=== PATIENT | male | born 1985 | race Caucasian/White ===

== ENCOUNTER → 2019-06-26 | Outpatient (CLI) | payer BC ==
[2019-06-26 12:58] LABS: Basophils # (A) 0.1 k/uL (0-0.2); Basophils % (A) 2 %; Eosinophils # (A) 0.1 k/uL (0-0.7); Eosinophils % (A) 2 %; HCT 48.1 % (39.0-53.0); HGB 15.3 gm/dL (13.0-17.5); Lymphocytes # (A) 0.8 k/uL (1.0-4.8); Lymphocytes % (A) 19 %; MCH 32.1 pg (25.0-35.0); MCHC 31.8 g/dL (31.0-37.0); MCV 100.9 fL (80.0-100.0); Monocytes # (A) 0.3 k/uL (0-1.0); Monocytes % (A) 8 %; Neutrophils # (A) 2.7 k/uL (1.3-7.7); Neutrophils % (A) 67 %; Platelet Count 254 k/uL (150-450); RBC 4.76 m/uL (4.30-5.90); RDW 12.2 % (11.5-15.5); WBC 4.1 k/uL (3.8-10.6)
[2019-06-26 13:04] LABS: African American GFR (CKD) >90 (>60 ml/min/1.73 sqM); Albumin 4.9 g/dL (3.5-5.0); Anion Gap 9 mmol/L; Blood Urea Nitrogen 16 mg/dL (9-20); Calcium 10.2 mg/dL (8.4-10.2); Carbon Dioxide 31 mmol/L (22-30); Chloride 100 mmol/L (98-107); Globulin 2.9 g/dL; Glucose 98 mg/dL (74-99); Non-African American GFR(CKD) >90 (>60 ml/min/1.73 sqM); Potassium 4.4 mmol/L (3.5-5.1); Sodium 140 mmol/L (137-145); Total Protein 7.8 g/dL (6.3-8.2)
[2019-06-26 13:05] LABS: ALT 23 U/L (4-49); AST 32 U/L (17-59); Albumin/Globulin Ratio 1.7; Alkaline Phosphatase 48 U/L (38-126); Creatine Kinase 122 U/L (55-170); Total Bilirubin 2.6 mg/dL (0.2-1.3)
[2019-06-26 13:32] LABS: Creatine Kinase MB 1.3 ng/mL (0.0-2.4); Troponin I <0.012 ng/mL (0.000-0.034)
[2019-06-26 14:17] LABS: Erythrocyte Sedimentation Rate 2 mm/hr (0-15)
== END | disposition home or self-care (01) ==
LOC: LABWHC1 12:28
PROVIDERS: ATTEND Physician Assistant
DX: R07.89 Other chest pain (principal)
CPT/HCPCS: 36415; 80053; 82248; 82550; 82553; 84484; 85025; 85652

== ENCOUNTER 2024-04-20 21:17 | Emergency (ER) | payer BC ==
--- NOTE | 2024-04-20 21:32 | ED ---
Fever HPI - General Chief Complaint: Chest Pain Stated Complaint: Chest Pain Time Seen by Provider: 04/20/24 21:25 Source: patient, RN notes reviewed, old records reviewed Mode of arrival: ambulatory Limitations: no limitations - History of Present Illness Initial Comments: This is a 38-year-old male to ER with left-sided chest pain cough congestion fev er symptoms, patient is going through a lot of turmoil in his life currently, recent divorce and multiple different medications started both for depression and sleeplessness. Patient stopped taking those medications within the last couple weeks and was noticed cough fever and congestion today left-sided chest pain MD Complaint: fever, malaise Temperature Source: subjective Context: sick contacts Associated Symptoms: denies other symptoms, rigors, myalgias, cough, chest pain Treatments Prior to Arrival: none - Related Data Allergies Allergy/AdvReac Type Severity Reaction Status Date / Time No Known Allergies Allergy Verified 04/20/24 21:18 Review of Systems ROS Statement: Those systems with pertinent positive or pertinent negative responses have been documented in the HPI. ROS Other: All systems not noted in ROS Statement are negative. Past Medical History Past Medical History: No Reported History Past Surgical History: No Surgical Hx Reported Smoking Status: Former smoker Past Alcohol Use History: None Reported Past Drug Use History: Marijuana General Exam Limitations: no limitations General appearance: alert, in no apparent distress, anxious, in distress Head exam: Present: atraumatic, normocephalic, normal inspection Eye exam: Present: normal appearance, PERRL, EOMI. Absent: scleral icterus, conjunctival injection, periorbital swelling ENT exam: Present: normal exam, mucous membranes moist Neck exam: Present: normal inspection. Absent: tenderness, meningismus, lymphadenopathy Respiratory exam: Present: normal lung sounds bilaterally. Absent: respiratory distress, wheezes, rales, rhonchi, stridor Cardiovascular Exam: Present: normal rhythm, tachycardia, normal heart sounds. Absent: systolic murmur, diastolic murmur, rubs, gallop, clicks GI/Abdominal exam: Present: soft, normal bowel sounds. Absent: distended, tenderness, guarding, rebound, rigid Extremities exam: Present: normal inspection, full ROM, normal capillary refill. Absent: tenderness, pedal edema, joint swelling, calf tenderness Back exam: Present: normal inspection Neurological exam: Present: alert, oriented X3, CN II-XII intact Psychiatric exam: Present: normal affect, normal mood Skin exam: Present: warm, dry, intact, normal color. Absent: rash Course Vital Signs 04/20/24 04/21/24 04/21/24 21:19 00:08 01:44 Temperature 100.6 F H 99.2 F Pulse Rate 104 H 96 99 Respiratory 20 15 17 Rate Blood Pressure 125/68 117/70 113/66 O2 Sat by Pulse 97 95 97 Oximetry - Reevaluation(s) Reevaluation #1: 04/20/24 22:14 Medical records reviewed Reevaluation #2: 04/21/24 00:40 1 symptoms improved Reevaluation #3: 04/21/24 00:40 Patient informed of results and questions answered Reevaluation #4: Was pt. sent in by a medical professional or institution (, [facility], BANK REPRESENTATIVE, urgent care, hospital, or fci...) When possible be specific @ -no Did you speak to anyone other than the patient for history (EMS, parent, family, police, friend...)? What history was obtained from this source @ -no Did you review nursing and triage notes (agree or disagree)? Why? @ -agree Are old charts reviewed (outside hosp., previous admission, EMS record, old EKG, old radiological studies, urgent care reports/EKG's, fci records)? Report findings @ -yes Differential Diagnosis (chest pain, altered mental status, abdominal pain women, abdominal pain men, vaginal bleeding, weakness, fever, dyspnea, syncope, headache, dizziness, GI bleed, back pain, seizure, CVA, palpatations, mental health, musculoskeletal)? @ -prior EKG interpreted by me (3pts min.). @ -yes X-rays interpreted by me (1pt min.). @ -yes negative for acute disease CT interpreted by me (1pt min.). @ -no U/S interpreted by me (1pt. min.). @ -no What testing was considered but not performed or refused? (CT, X-rays, U/S, labs)? Why? @ -none What meds were considered but not given or refused? Why? @ -none Did you discuss the management of the patient with other professionals (jacob cano i.e. , [facility], BANK REPRESENTATIVE, lab, RT, psych nurse, social welfare research worker, economic development specialist, teacher, chief contract officer, counseling case manager)? Give summary @ -no Was smoking cessation discussed for >3mins.? @ -no Was critical care preformed (if so, how long)? @ -no Were there social determinants of health that impacted care today? How? (Homelessness, low income, unemployed, alcoholism, drug addiction, transportation, low edu. Level, literacy, decrease access to med. care, long term, rehab)? @ -none Was there de-escalation of care discussed even if they declined (Discuss DNR or withdrawal of care, Hospice)? DNR status @ -no What co-morbidities impacted this encounter? (DM, HTN, Smoking, COPD, CAD, Cancer, CVA, ARF, Chemo, Hep., AIDS, mental health diagnosis, sleep apnea, morbid obesity)? @ -none Was patient admitted / discharged? Hospital course, mention meds given and route, prescriptions, significant lab abnormalities, going to OR and other pertinent info. @ - 38 male to ER for evaluation of chest pain chest pain found fever of left- sided chest pain no acute causes found here in the ER x-rays negative lab testin g is normal patient has a fever here without cause, patient will be discharged home discharge Undiagnosed new problem with uncertain prognosis? @ -no Drug Therapy requiring intensive monitoring for toxicity (Heparin, Nitro, Insulin, Cardizem)? @ -no Were any procedures done? @ -no Diagnosis/symptom? @ -Chest pain and fever Acute, or Chronic, or Acute on Chronic? @ -Acute Uncomplicated (without systemic symptoms) or Complicated (systemic symptoms)? @ -Complicated Side effects of treatment? @ -no Exacerbation, Progression, or Severe Exacerbation? @ -exacerbation Poses a threat to life or bodily function? How? (Chest pain, [place], [place], pneumonia, PE, COPD, DKA, ARF, appy, cholecystitis, CVA, Diverticulitis, Homicidal, Suicidal, threat to staff... and all critical care pts) @ -yes Reevaluation #5: Differential Fever: Pneumonia, viral URI, endocarditis, myocarditis, pericarditis, otitis, sinusitis, peritonsillar Abscess, retropharyngeal Abscess, epiglottitis, peritonitis, appendicitis, Sharlene cystitis, diverticulitis, hepatitis, colitis, UTI, PID, TOA, pyelonephritis, prostatitis, epididymitis, meningitis, encephalitis, pulmonary embolism, CVA, thyroid storm, pancreatitis, adrenal crisis, cavernous sinus thrombosis, this is not meant to be an all-inclusive list. Differential Chest Pain: Stable Angina, Unstable Angina, STEMI, NSTEMI Aortic Dissection, Pneumothorax, Musculoskeletal, Esophageal Spasm GERD, Cholecystitis, Pancreatitis, Zoster, this is not meant to be an all-inclusive list. Medical Decision Making - Medical Decision Making 38 male to ER for evaluation of chest pain chest pain found fever of left-sided chest pain no acute causes found here in the ER x-rays negative lab testing is normal patient has a fever here without cause, patient will be discharged home - Lab Data Result diagrams: 04/20/24 21:40 04/20/24 21:40 Lab Results 04/20/24 04/20/24 04/20/24 Range/Units 21:40 21:40 21:40 WBC 15.6 H (3.8-10.6) k/uL RBC 4.27 L (4.30-5.90) m/uL Hgb 13.4 (13.0-17.5) gm/dL Hct 42.3 (39.0-53.0) % MCV 99.1 (80.0-100.0) fL MCH 31.5 (25.0-35.0) pg MCHC 31.8 (31.0-37.0) g/dL RDW 12.1 (11.5-15.5) % Plt Count 366 (150-450) k/uL MPV 6.9 Neutrophils % 84 % Lymphocytes % 7 % Monocytes % 7 % Eosinophils % 1 % Basophils % 0 % Neutrophils # 13.1 H (1.3-7.7) k/uL Lymphocytes # 1.1 (1.0-4.8) k/uL Monocytes # 1.1 H (0-1.0) k/uL Eosinophils # 0.1 (0-0.7) k/uL Basophils # 0.0 (0-0.2) k/uL PT 10.3 (10.0-12.5) sec INR 0.9 (<1.2) APTT 26.9 (22.0-30.0) sec D-Dimer (<0.60) mg/L FEU Sodium 135 L (137-145) mmol/L Potassium 4.1 (3.5-5.1) mmol/L Chloride 103 (98-107) mmol/L Carbon Dioxide 24 (22-30) mmol/L Anion Gap 8 mmol/L BUN 12 (9-20) mg/dL Creatinine 0.67 (0.66-1.25) mg/dL Est GFR (CKD-EPI)AfAm >90 (>60 ml/min/1.73 sqM) Est GFR (CKD-EPI)NonAf >90 (>60 ml/min/1.73 sqM) Glucose 108 H (74-99) mg/dL Plasma Lactic Acid [place] (0.7-2.0) mmol/L Calcium 9.5 (8.4-10.2) mg/dL Magnesium 1.8 (1.6-2.3) mg/dL Total Bilirubin 0.6 (0.2-1.3) mg/dL AST 27 (17-59) U/L ALT 19 (4-49) U/L Alkaline Phosphatase 77 (38-126) U/L Troponin I (0.000-0.034) ng/mL NT-Pro-B Natriuret Pep <20 pg/mL Total Protein 6.6 (6.3-8.2) g/dL Albumin 4.3 (3.5-5.0) g/dL Lipase (23-300) U/L Urine Color Urine Appearance (Clear) Urine pH (5.0-8.0) Ur Specific [place] (1.001-1.035) Urine Protein (Negative) Urine Glucose (UA) (Negative) Urine Ketones (Negative) Urine Blood (Negative) Urine Nitrite (Negative) Urine Bilirubin (Negative) Urine Urobilinogen (<2.0) mg/dL Ur Leukocyte Esterase (Negative) Influenza Type A (PCR) (Not Detectd) Influenza Type B (PCR) (Not Detectd) RSV (PCR) (Not Detectd) SARS-CoV-2 (PCR) (Not Detectd) 04/20/24 04/20/24 04/20/24 Range/Units 21:40 22:18 22:18 WBC (3.8-10.6) k/uL RBC (4.30-5.90) m/uL Hgb (13.0-17.5) gm/dL Hct (39.0-53.0) % MCV (80.0-100.0) fL MCH (25.0-35.0) pg MCHC (31.0-37.0) g/dL RDW (11.5-15.5) % Plt Count (150-450) k/uL MPV Neutrophils % % Lymphocytes % % Monocytes % % Eosinophils % % Basophils % % Neutrophils # (1.3-7.7) k/uL Lymphocytes # (1.0-4.8) k/uL Monocytes # (0-1.0) k/uL Eosinophils # (0-0.7) k/uL Basophils # (0-0.2) k/uL PT (10.0-12.5) sec INR (<1.2) APTT (22.0-30.0) sec D-Dimer (<0.60) mg/L FEU Sodium (137-145) mmol/L Potassium (3.5-5.1) mmol/L Chloride (98-107) mmol/L Carbon Dioxide (22-30) mmol/L Anion Gap mmol/L BUN (9-20) mg/dL Creatinine (0.66-1.25) mg/dL Est GFR (CKD-EPI)AfAm (>60 ml/min/1.73 sqM) Est GFR (CKD-EPI)NonAf (>60 ml/min/1.73 sqM) Glucose (74-99) mg/dL Plasma Lactic Acid [place] 1.6 (0.7-2.0) mmol/L Calcium (8.4-10.2) mg/dL Magnesium (1.6-2.3) mg/dL Total Bilirubin (0.2-1.3) mg/dL AST (17-59) U/L ALT (4-49) U/L Alkaline Phosphatase (38-126) U/L Troponin I <0.012 (0.000-0.034) ng/mL NT-Pro-B Natriuret Pep pg/mL Total Protein (6.3-8.2) g/dL Albumin (3.5-5.0) g/dL Lipase (23-300) U/L Urine Color Urine Appearance (Clear) Urine pH (5.0-8.0) Ur Specific [place] (1.001-1.035) Urine Protein (Negative) Urine Glucose (UA) (Negative) Urine Ketones (Negative) Urine Blood (Negative) Urine Nitrite (Negative) Urine Bilirubin (Negative) Urine Urobilinogen (<2.0) mg/dL Ur Leukocyte Esterase (Negative) Influenza Type A (PCR) Not Detected (Not Detectd) Influenza Type B (PCR) Not Detected (Not Detectd) RSV (PCR) Not Detected (Not Detectd) SARS-CoV-2 (PCR) Not Detected (Not Detectd) 04/20/24 04/20/24 04/20/24 Range/Units 23:50 23:50 23:59 WBC (3.8-10.6) k/uL RBC (4.30-5.90) m/uL Hgb (13.0-17.5) gm/dL Hct (39.0-53.0) % MCV (80.0-100.0) fL MCH (25.0-35.0) pg MCHC (31.0-37.0) g/dL RDW (11.5-15.5) % Plt Count (150-450) k/uL MPV Neutrophils % % Lymphocytes % % Monocytes % % Eosinophils % % Basophils % % Neutrophils # (1.3-7.7) k/uL Lymphocytes # (1.0-4.8) k/uL Monocytes # (0-1.0) k/uL Eosinophils # (0-0.7) k/uL Basophils # (0-0.2) k/uL PT (10.0-12.5) sec INR (<1.2) APTT (22.0-30.0) sec D-Dimer 0.23 (<0.60) mg/L FEU Sodium (137-145) mmol/L Potassium (3.5-5.1) mmol/L Chloride (98-107) mmol/L Carbon Dioxide (22-30) mmol/L Anion Gap mmol/L BUN (9-20) mg/dL Creatinine (0.66-1.25) mg/dL Est GFR (CKD-EPI)AfAm (>60 ml/min/1.73 sqM) Est GFR (CKD-EPI)NonAf (>60 ml/min/1.73 sqM) Glucose (74-99) mg/dL Plasma Lactic Acid [place] (0.7-2.0) mmol/L Calcium (8.4-10.2) mg/dL Magnesium (1.6-2.3) mg/dL Total Bilirubin (0.2-1.3) mg/dL AST (17-59) U/L ALT (4-49) U/L Alkaline Phosphatase (38-126) U/L Troponin I (0.000-0.034) ng/mL NT-Pro-B Natriuret Pep <20 pg/mL Total Protein (6.3-8.2) g/dL Albumin (3.5-5.0) g/dL Lipase 63 (23-300) U/L Urine Color Colorless Urine Appearance Clear (Clear) Urine pH 6.0 (5.0-8.0) Ur Specific [place] 1.004 (1.001-1.035) Urine Protein Negative (Negative) Urine Glucose (UA) Negative (Negative) Urine Ketones Negative (Negative) Urine Blood Negative (Negative) Urine Nitrite Negative (Negative) Urine Bilirubin Negative (Negative) Urine Urobilinogen <2.0 (<2.0) mg/dL Ur Leukocyte Esterase Negative (Negative) Influenza Type A (PCR) (Not Detectd) Influenza Type B (PCR) (Not Detectd) RSV (PCR) (Not Detectd) SARS-CoV-2 (PCR) (Not Detectd) 04/21/24 Range/Units 00:53 WBC (3.8-10.6) k/uL RBC (4.30-5.90) m/uL Hgb (13.0-17.5) gm/dL Hct (39.0-53.0) % MCV (80.0-100.0) fL MCH (25.0-35.0) pg MCHC (31.0-37.0) g/dL RDW (11.5-15.5) % Plt Count (150-450) k/uL MPV Neutrophils % % Lymphocytes % % Monocytes % % Eosinophils % % Basophils % % Neutrophils # (1.3-7.7) k/uL Lymphocytes # (1.0-4.8) k/uL Monocytes # (0-1.0) k/uL Eosinophils # (0-0.7) k/uL Basophils # (0-0.2) k/uL PT (10.0-12.5) sec INR (<1.2) APTT (22.0-30.0) sec D-Dimer (<0.60) mg/L FEU Sodium (137-145) mmol/L Potassium (3.5-5.1) mmol/L Chloride (98-107) mmol/L Carbon Dioxide (22-30) mmol/L Anion Gap mmol/L BUN (9-20) mg/dL Creatinine (0.66-1.25) mg/dL Est GFR (CKD-EPI)AfAm (>60 ml/min/1.73 sqM) Est GFR (CKD-EPI)NonAf (>60 ml/min/1.73 sqM) Glucose (74-99) mg/dL Plasma Lactic Acid [place] (0.7-2.0) mmol/L Calcium (8.4-10.2) mg/dL Magnesium (1.6-2.3) mg/dL Total Bilirubin (0.2-1.3) mg/dL AST (17-59) U/L ALT (4-49) U/L Alkaline Phosphatase (38-126) U/L Troponin I <0.012 (0.000-0.034) ng/mL NT-Pro-B Natriuret Pep pg/mL Total Protein (6.3-8.2) g/dL Albumin (3.5-5.0) g/dL Lipase (23-300) U/L Urine Color Urine Appearance (Clear) Urine pH (5.0-8.0) Ur Specific [place] (1.001-1.035) Urine Protein (Negative) Urine Glucose (UA) (Negative) Urine Ketones (Negative) Urine Blood (Negative) Urine Nitrite (Negative) Urine Bilirubin (Negative) Urine Urobilinogen (<2.0) mg/dL Ur Leukocyte Esterase (Negative) Influenza Type A (PCR) (Not Detectd) Influenza Type B (PCR) (Not Detectd) RSV (PCR) (Not Detectd) SARS-CoV-2 (PCR) (Not Detectd) - EKG Data -: EKG Interpreted by Me (EKG is sinus 99 DC 131 QRS 96 QTc 385) - Radiology Data Radiology results: report reviewed (Chest x-ray is negative for acute disease), image reviewed Disposition Clinical Impression: Atypical chest pain, Chest pain, Fever, Viral syndrome Disposition: HOME SELF-CARE Condition: Good Instructions (If sedation given, give patient instructions): Chest Pain (ED) Is patient prescribed a controlled substance at d/c from ED?: No Referrals: Gelacio Goldberg MD [Primary Care Provider] - 1-2 days Time of Disposition: 00:40
[2024-04-20] MEDS: ACETAMINOPHEN TAB 500 MG TAB PO STA (21:59)
[2024-04-20] MEDS: SODIUM CHLORIDE 0.9% 1,000 ML IV STA ×2 (22:01→22:07)
[2024-04-20] MEDS: SODIUM CHLORIDE 0.9% 500 ML 500 ML IV STA (22:08)
[2024-04-20] MEDS: ONDANSETRON 4 MG/2 ML VIAL IVP STA (22:09)
[2024-04-20] MEDS: KETOROLAC 15 MG/ML 1 ML VIAL IVP STA (22:14)
[2024-04-20 22:18] LABS: Basophils % (A) 0 %; Eosinophils # (A) 0.1 k/uL (0-0.7); Eosinophils % (A) 1 %; HCT 42.3 % (39.0-53.0); HGB 13.4 gm/dL (13.0-17.5); Lymphocytes # (A) 1.1 k/uL (1.0-4.8); Lymphocytes % (A) 7 %; MCH 31.5 pg (25.0-35.0); MCHC 31.8 g/dL (31.0-37.0); MCV 99.1 fL (80.0-100.0); Mean Platelet Volume 6.9; Monocytes # (A) 1.1 k/uL (0-1.0); Monocytes % (A) 7 %; Neutrophils # (A) 13.1 k/uL (1.3-7.7); Neutrophils % (A) 84 %; Platelet Count 366 k/uL (150-450); RBC 4.27 m/uL (4.30-5.90); RDW 12.1 % (11.5-15.5); WBC 15.6 k/uL (3.8-10.6)
[2024-04-20 22:23] LABS: INR 0.9 (<1.2); Partial Thromboplastin Time 26.9 sec (22.0-30.0); Prothrombin Time 10.3 sec (10.0-12.5)
[2024-04-20 22:45] LABS: ALT 19 U/L (4-49); AST 27 U/L (17-59); African American GFR (CKD) >90 (>60 ml/min/1.73 sqM); Albumin 4.3 g/dL (3.5-5.0); Alkaline Phosphatase 77 U/L (38-126); Anion Gap 8 mmol/L; Blood Urea Nitrogen 12 mg/dL (9-20); Calcium 9.5 mg/dL (8.4-10.2); Carbon Dioxide 24 mmol/L (22-30); Chloride 103 mmol/L (98-107); Glucose 108 mg/dL (74-99); Magnesium 1.8 mg/dL (1.6-2.3); Non-African American GFR(CKD) >90 (>60 ml/min/1.73 sqM); Potassium 4.1 mmol/L (3.5-5.1); Sodium 135 mmol/L (137-145); Total Bilirubin 0.6 mg/dL (0.2-1.3); Total Protein 6.6 g/dL (6.3-8.2)
[2024-04-20 22:54] LABS: NT-Pro-B-Type Natriuretic Pept <20 pg/mL
--- NOTE | 2024-04-20 23:44 | XR ---
EXAM: XR Chest, 2 Views CLINICAL HISTORY: ITS.REASON XR Reason: cp TECHNIQUE: Frontal and lateral views of the chest. COMPARISON: No previous studies. FINDINGS: Lungs: Unremarkable. No consolidative changes. Pleural space: Unremarkable. No pneumothorax. No pleural effusions. Heart: Heart is normal in size. No cardiomegaly. Mediastinum: Unremarkable. Normal mediastinal contour. Bones/joints: Unremarkable. No acute fracture. Normal alignment of the thoracic spine. Soft tissues: Soft tissues are unremarkable. IMPRESSION: No consolidative changes or pleural effusions.
[2024-04-21 00:09] VITALS: TEMP 99.2
[2024-04-21 00:46] LABS: Appearance,Urine Clear (Clear); Bilirubin,Urine Negative (Negative); Blood,Urine Negative (Negative); Color,Urine Colorless; Glucose,Urine (UA) Negative (Negative); Ketones,Urine Negative (Negative); Leukocyte Esterase,Urine Negative (Negative); Nitrite,Urine Negative (Negative); Protein,Urine Negative (Negative); Specific Gravity,Urine 1.004 (1.001-1.035); Urobilinogen,Urine <2.0 mg/dL (<2.0)
[2024-04-21 00:48] LABS: Lipase 63 U/L (23-300)
[2024-04-21 00:58] LABS: NT-Pro-B-Type Natriuretic Pept <20 pg/mL
[2024-04-21 01:45] VITALS: BP 113/66; PULSE 99; RESP 17
== END 2024-04-21 01:45 | disposition home or self-care (01) ==
LOC: EC 21:17
DX: R07.89 Other chest pain (principal); B34.9 Viral infection, unspecified; Z87.891 Personal history of nicotine dependence
CPT/HCPCS: 36415 ×2; 93005; 85379; 83880; 80053; 83605; 83690; 83735; 84484 ×2; 85025; 85610; 85730; 81003; 87040; 87636; 71046; 99285; 96374; 96375; 96361 ×3; J2405; J1885

== ENCOUNTER 2024-09-26 16:50 | Inpatient (IN) | payer BC, OTHER ==
--- NOTE | 2024-09-26 17:23 | ED ---
General Adult HPI - General Chief complaint: Psychiatric Symptoms Stated complaint: AMS Time Seen by Provider: 09/26/24 17:09 Source: police Mode of arrival: ambulatory Limitations: altered mental status - History of Present Illness Initial comments: Dictation was produced using [employer] dictation software. please excuse any grammatical, word or spelling errors. Chief Complaint: 39-year-old male with altered mental status History of Present Illness: Patient is a 39-year-old male with history of depression. Patient does not have any known other psychiatric illnesses. Takes Lexapro for depression. Today police was called due to patient being in [facility]. He was behaving psychotic and telling everyone to pray for him. Apparently he is going through divorce and took some kratom. Patient denies any ingestion of any other substances. Patient also became paranoid with police as he was being brought to the ER. Denies any complaints at the bedside. Denies any suicidal homicidal ideation. Denies any visual or auditory hallucinations. EMS did report that patient has been behaving paranoid The ROS documented in this emergency department record has been reviewed and confirmed by me. Those systems with pertinent positive or negative responses have been documented in the HPI. All other systems are other negative and/or noncontributory. - Related Data Home Medications Medication Instructions Recorded Confirmed Escitalopram [Lexapro] 10 mg PO DAILY 09/26/24 09/26/24 Allergies Allergy/AdvReac Type Severity Reaction Status Date / Time No Known Allergies Allergy Verified 09/26/24 18:10 Review of Systems ROS Statement: Those systems with pertinent positive or pertinent negative responses have been documented in the HPI. ROS Other: All systems not noted in ROS Statement are negative. Past Medical History Past Medical History: No Reported History Past Surgical History: No Surgical Hx Reported Smoking Status: Former smoker Past Alcohol Use History: None Reported Past Drug Use History: Marijuana General Exam - General Exam Comments Initial Comments: PHYSICAL EXAM: General Impression: Alert and oriented x3, not in acute distress HEENT: Normocephalic atraumatic, extra-ocular movements intact, bilateral mydriasis, mucous membranes moist. Cardiovascular: Heart regular rate and rhythm Chest: Able to complete full sentences, no retractions, no tachypnea Abdomen: abdomen soft, non-tender, non-distended, no organomegaly Musculoskeletal: Pulses present and equal in all extremities, no peripheral edema Motor: no focal deficits noted Neurological: CN II-XII grossly intact, no focal motor or sensory deficits noted Skin: Intact with no visualized rashes Psych: Normal affect and mood Limitations: altered mental status Course Vital Signs 09/26/24 16:53 Temperature 97.9 F Pulse Rate 91 Respiratory 18 Rate Blood Pressure 121/89 O2 Sat by Pulse 98 Oximetry Medical Decision Making - Medical Decision Making Was pt. sent in by a medical professional or institution (, PA, CRM TECHNICAL LEAD, urgent care, hospital, or skilled nursing...) When possible be specific @ -No Did you speak to anyone other than the patient for history (EMS, parent, family, police, friend...)? What history was obtained from this source @ -No Did you review nursing and triage notes (agree or disagree)? Why? @ -I reviewed and agree with nursing and triage notes Were old charts reviewed (outside hosp., previous admission, EMS record, old EKG, old radiological studies, urgent care reports/EKG's, skilled nursing records)? Report findings @ -No old charts were reviewed Differential Diagnosis (chest pain, altered mental status, abdominal pain women, abdominal pain men, vaginal bleeding, musculoskeletal, weakness, fever, dyspnea, syncope, headache, dizziness, GI bleed, back pain, seizure, CVA, palpatations, mental health)? @ -Differential Mental Health: Depression, anxiety, bipolar, psychosis, schizophrenia, borderline personality, situational depression, adjustment disorder, behavioral disorder, brain tumor, malingering, substance abuse, encephalopathy, medication reaction, dementia, hypothyroidism, degenerative neurologic disorder, lupus.... This is not meant to be all-inclusive list EKG interpreted by me (3pts min.). @ -None done X-rays interpreted by me (1pt min.). @ -None done CT interpreted by me (1pt min.). @ -None done U/S interpreted by me (1pt. min.). @ -None done What testing was considered but not performed or refused? (CT, X-rays, U/S, labs)? Why? @ -None What meds were considered but not given or refused? Why? @ -None Was smoking cessation discussed for >3mins.? @ -No Were there social determinants of health that impacted care today? How? (Homelessness, low income, unemployed, alcoholism, drug addiction, transportation, low edu. Level, literacy, decrease access to med. care, fci, rehab)? @ -No Was there de-escalation of care discussed even if they declined (Discuss DNR or withdrawal of care, Hospice)? DNR status @ -No What co-morbidities impacted this encounter? (DM, HTN, Smoking, COPD, CAD, Ca ncer, CVA, ARF, Chemo, Hep., AIDS, mental health diagnosis, sleep apnea, morbid obesity)? @ -Depression Was patient admitted / discharged? Hospital course, mention meds given and route, prescriptions, significant lab abnormalities, going to OR and other pertinent info. @ -39-year-old male brought to the emergency department by law enforcement for mental health evaluation. Vital signs stable. Patient does have some mild mydriasis. Patient does not have any other tox findings. Concern for likely slight anticholinergic toxicity. Laboratory evaluation is unremarkable. No acidosis. Tox labs are negative. Patient resting comfortably no acute distress. Patient medically cleared for EPS evaluation. EPS evaluated patient recommend inpatient psychiatric admission. Clinical certification completed. Did you discuss the management of the patient with other professionals (professionals i.e. , PA, CRM TECHNICAL LEAD, lab, RT, psych nurse, social sciences professor, agile scrum coach, teacher, assurance officer, caseworker)? Give summary @ -No Was critical care preformed (if so, how long)? @ -No Undiagnosed new problem with uncertain prognosis? @ -No Drug Therapy requiring intensive monitoring for toxicity (Heparin, Nitro, Insulin, Cardizem)? @ -No Were any procedures done? @ -No Diagnosis/symptom? Acute, or Chronic, or Acute on Chronic? Uncomplicated (without systemic symptoms) or Complicated (systemic symptoms)? @ -Psychosis Side effects of treatment? @ -No Exacerbation, Progression, or Severe Exacerbation? @ -No Poses a threat to life or bodily function? How? (Chest pain, USA, MD, pneumonia, PE, COPD, DKA, ARF, appy, cholecystitis, CVA, Diverticulitis, Homicidal, Suicidal, threat to staff... and all critical care pts) @ -yes - Lab Data Result diagrams: 09/26/24 17:28 09/26/24 17:28 Lab Results 09/26/24 09/26/24 09/26/24 Range/Units 17:28 17:28 17:28 WBC 5.9 (3.8-10.6) k/uL RBC 4.26 L (4.30-5.90) m/uL Hgb 12.9 L (13.0-17.5) gm/dL Hct 41.6 (39.0-53.0) % MCV 97.6 (80.0-100.0) fL MCH 30.2 (25.0-35.0) pg MCHC 30.9 L (31.0-37.0) g/dL RDW 12.9 (11.5-15.5) % Plt Count 245 (150-450) k/uL MPV 7.3 Neutrophils % 78 % Lymphocytes % 13 % Monocytes % 7 % Eosinophils % 1 % Basophils % 0 % Neutrophils # 4.6 (1.3-7.7) k/uL Lymphocytes # 0.8 L (1.0-4.8) k/uL Monocytes # 0.4 (0-1.0) k/uL Eosinophils # 0.1 (0-0.7) k/uL Basophils # 0.0 (0-0.2) k/uL PT 10.7 (10.0-12.5) sec INR 1.0 (<1.2) APTT 22.8 (22.0-30.0) sec Sodium 135 L (137-145) mmol/L Potassium 4.1 (3.5-5.1) mmol/L Chloride 101 (98-107) mmol/L Carbon Dioxide 27 (22-30) mmol/L Anion Gap 7 mmol/L BUN 13 (9-20) mg/dL Creatinine 0.61 L (0.66-1.25) mg/dL Est GFR (CKD-EPI)AfAm >90 (>60 ml/min/1.73 sqM) Est GFR (CKD-EPI)NonAf >90 (>60 ml/min/1.73 sqM) Glucose 106 H (74-99) mg/dL Plasma Lactic Acid Zeke (0.7-2.0) mmol/L Calcium 9.3 (8.4-10.2) mg/dL Magnesium 2.1 (1.6-2.3) mg/dL Total Bilirubin 1.0 (0.2-1.3) mg/dL AST 23 (17-59) U/L ALT 17 (4-49) U/L Alkaline Phosphatase 50 (38-126) U/L Total Protein 7.0 (6.3-8.2) g/dL Albumin 4.7 (3.5-5.0) g/dL Salicylates <1.0 mg/dL Acetaminophen <10.0 ug/mL Serum Alcohol <10 mg/dL 09/26/24 Range/Units 17:28 WBC (3.8-10.6) k/uL RBC (4.30-5.90) m/uL Hgb (13.0-17.5) gm/dL Hct (39.0-53.0) % MCV (80.0-100.0) fL MCH (25.0-35.0) pg MCHC (31.0-37.0) g/dL RDW (11.5-15.5) % Plt Count (150-450) k/uL MPV Neutrophils % % Lymphocytes % % Monocytes % % Eosinophils % % Basophils % % Neutrophils # (1.3-7.7) k/uL Lymphocytes # (1.0-4.8) k/uL Monocytes # (0-1.0) k/uL Eosinophils # (0-0.7) k/uL Basophils # (0-0.2) k/uL PT (10.0-12.5) sec INR (<1.2) APTT (22.0-30.0) sec Sodium (137-145) mmol/L Potassium (3.5-5.1) mmol/L Chloride (98-107) mmol/L Carbon Dioxide (22-30) mmol/L Anion Gap mmol/L BUN (9-20) mg/dL Creatinine (0.66-1.25) mg/dL Est GFR (CKD-EPI)AfAm (>60 ml/min/1.73 sqM) Est GFR (CKD-EPI)NonAf (>60 ml/min/1.73 sqM) Glucose (74-99) mg/dL Plasma Lactic Acid Zeke 1.2 (0.7-2.0) mmol/L Calcium (8.4-10.2) mg/dL Magnesium (1.6-2.3) mg/dL Total Bilirubin (0.2-1.3) mg/dL AST (17-59) U/L ALT (4-49) U/L Alkaline Phosphatase (38-126) U/L Total Protein (6.3-8.2) g/dL Albumin (3.5-5.0) g/dL Salicylates mg/dL Acetaminophen ug/mL Serum Alcohol mg/dL Disposition Clinical Impression: Psychosis Disposition: TRANSFER TO PSYCH HOSP/UNIT Condition: Fair Referrals: Gelacio Goldberg MD [Primary Care Provider] - 1-2 days Decision Time: 23:12
[2024-09-26 17:52] LABS: Partial Thromboplastin Time 22.8 sec (22.0-30.0); Prothrombin Time 10.7 sec (10.0-12.5)
[2024-09-26 17:54] LABS: ALT 17 U/L (4-49); AST 23 U/L (17-59); Acetaminophen <10.0 ug/mL; African American GFR (CKD) >90 (>60 ml/min/1.73 sqM); Albumin 4.7 g/dL (3.5-5.0); Alcohol <10 mg/dL; Alkaline Phosphatase 50 U/L (38-126); Anion Gap 7 mmol/L; Basophils % (A) 0 %; Blood Urea Nitrogen 13 mg/dL (9-20); Calcium 9.3 mg/dL (8.4-10.2); Carbon Dioxide 27 mmol/L (22-30); Chloride 101 mmol/L (98-107); Eosinophils # (A) 0.1 k/uL (0-0.7); Eosinophils % (A) 1 %; Glucose 106 mg/dL (74-99); HCT 41.6 % (39.0-53.0); HGB 12.9 gm/dL (13.0-17.5); Lymphocytes # (A) 0.8 k/uL (1.0-4.8); Lymphocytes % (A) 13 %; MCH 30.2 pg (25.0-35.0); MCHC 30.9 g/dL (31.0-37.0); MCV 97.6 fL (80.0-100.0); Magnesium 2.1 mg/dL (1.6-2.3); Mean Platelet Volume 7.3; Monocytes # (A) 0.4 k/uL (0-1.0); Monocytes % (A) 7 %; Neutrophils # (A) 4.6 k/uL (1.3-7.7); Neutrophils % (A) 78 %; Non-African American GFR(CKD) >90 (>60 ml/min/1.73 sqM); Platelet Count 245 k/uL (150-450); Potassium 4.1 mmol/L (3.5-5.1); RBC 4.26 m/uL (4.30-5.90); RDW 12.9 % (11.5-15.5); Salicylate <1.0 mg/dL; Sodium 135 mmol/L (137-145); WBC 5.9 k/uL (3.8-10.6)
[2024-09-26 23:21] LABS: Amphetamine Screen,Urine Not Detected (NotDetected); Barbiturate Screen,Urine Not Detected (NotDetected); Benzodiazepines Screen,Urine Not Detected (NotDetected); Cocaine Screen,Urine Not Detected (NotDetected); Methadone Screen, Urine Not Detected (NotDetected); Opiate Screen,Urine Not Detected (NotDetected); Oxycodone Screen, Urine Not Detected (NotDetected); Phencyclidine Screen,Urine Not Detected (NotDetected); Tricyclic Antidepressant,Urine Not Detected (NotDetected); Urn Cannabinoid Scrn Detected (NotDetected)
[2024-09-27] MEDS ORDERED: MAGNESIUM HYDROXIDE 2,400 MG/30 ML CUP PO PRN (00:34)
[2024-09-27] MEDS ORDERED: LORazepam 2 MG/ML INJ IM PRN (00:34)
[2024-09-27] MEDS ORDERED: ACETAMINOPHEN TAB 325 MG TAB PO PRN (00:34)
[2024-09-27] MEDS ORDERED: MAG HYDROX/AL HYDROX/SIMETH 355 ML BOTTLE PO PRN (00:34)
[2024-09-27] MEDS ORDERED: HALOPERIDOL LACTATE 5 MG/ML 1 ML VIAL IM PRN (00:34)
[2024-09-27] MEDS: LORazepam 1 MG TAB PO PRN (01:21)
[2024-09-27] MEDS: NICOTINE 14MG/24HR PATCH TRANSDERM SCH (01:28)
[2024-09-27 07:28] LABS: Appearance,Urine Clear (Clear); Bilirubin,Urine Negative (Negative); Blood,Urine Negative (Negative); Color,Urine Light Yellow; Glucose,Urine (UA) Negative (Negative); Ketones,Urine Negative (Negative); Leukocyte Esterase,Urine Negative (Negative); Nitrite,Urine Negative (Negative); Protein,Urine Negative (Negative); Specific Gravity,Urine 1.015 (1.001-1.035); Urobilinogen,Urine <2.0 mg/dL (<2.0)
[2024-09-27] MEDS: ESCITALOPRAM 10 MG TAB PO SCH (08:18)
[2024-09-27] MEDS: NICOTINE GUM (POLACRILEX) 2 MG GUM BUCCAL PRN (10:10)
--- NOTE | 2024-09-27 10:16 | P.HP ---
Psychiatric H&P - . H&P Date: 09/27/24 History & Physical: Allergies Allergy/AdvReac Type Severity Reaction Status Date / Time No Known Allergies Allergy Verified 09/26/24 18:10 Vital Signs Temp 97.5 F L 09/27/24 08:21 Pulse 109 H 09/27/24 08:21 Resp 18 09/26/24 16:53 BP 127/70 09/27/24 08:21 Pulse Ox 98 09/26/24 16:53 FiO2 Intake & Output 09/26/24 09/27/24 09/27/24 18:59 06:59 18:59 Weight 72.575 kg Laboratory Last Values WBC 5.9 k/uL (3.8-10.6) 09/26/24 17: RBC 4.26 m/uL (4.30-5.90) L 09/26/24 17:28 Hgb 12.9 gm/dL (13.0-17.5) L 09/26/24 17: Hct 41.6 % (39.0-53.0) 09/26/24 17: MCV 97.6 fL (80.0-100.0) 09/26/24 17: MCH 30.2 pg (25.0-35.0) 09/26/24 17: MCHC 30.9 g/dL (31.0-37.0) L 09/26/24 17:28 RDW 12.9 % (11.5-15.5) 09/26/24 17: Plt Count 245 k/uL (150-450) 09/26/24 17: MPV 7.3 09/26/24 17: Neutrophils % 78 % 09/26/24 17:28 Lymphocytes % 13 % 09/26/24 17:28 Monocytes % 7 % 09/26/24 17:28 Eosinophils % 1 % 09/26/24 17: Basophils % 0 % 09/26/24 17: Neutrophils # 4.6 k/uL (1.3-7.7) 09/26/24 17:28 Lymphocytes # 0.8 k/uL (1.0-4.8) L 09/26/24 17: Monocytes # 0.4 k/uL (0-1.0) 09/26/24 17: Eosinophils # 0.1 k/uL (0-0.7) 09/26/24 17: Basophils # 0.0 k/uL (0-0.2) 09/26/24 17: PT 10.7 sec (10.0-12.5) 09/26/24 17: INR 1.0 (<1.2) 09/26/24 17: APTT 22.8 sec (22.0-30.0) 09/26/24 17: Sodium 135 mmol/L (137-145) L 09/26/24 17: Potassium 4.1 mmol/L (3.5-5.1) 09/26/24 17: Chloride 101 mmol/L (98-107) 09/26/24: Carbon Dioxide 27 mmol/L (22-30) 09/26/24 17: Anion Gap 7 mmol/L 09/26/24: BUN 13 mg/dL (9-20) 09/26/24: Creatinine 0.61 mg/dL (0.66-1.25) L 09/26/24 17: Est GFR (CKD-EPI)AfAm >90 (>60 ml/min/1.73 sqM) 09/26/24 17: Est GFR (CKD-EPI)NonAf >90 (>60 ml/min/1.73 sqM) 09/26/24 17: Glucose 106 mg/dL (74-99) H 09/26/24: Plasma Lactic Acid Zeke 1.2 mmol/L (0.7-2.0) 09/26/24: Calcium 9.3 mg/dL (8.4-10.2) 09/26/24 17: Magnesium 2.1 mg/dL (1.6-2.3) 09/26/24 17: Total Bilirubin 1.0 mg/dL (0.2-1.3) 09/26/24 17: AST 23 U/L (17-59) 09/26/24 17: ALT 17 U/L (4-49) 09/26/24 17: Alkaline Phosphatase 50 U/L (38-126) 09/26/24: Total Protein 7.0 g/dL (6.3-8.2) 09/26/24 17: Albumin 4.7 g/dL (3.5-5.0) 09/26/24 17: Urine Color Light Yellow 09/26/24: Urine Appearance Clear (Clear) 09/26/24 22: Urine pH 7.0 (5.0-8.0) 09/26/24 22: Ur Specific [place] 1.015 (1.001-1.035) 09/26/24: Urine Protein Negative (Negative) 09/26/24: Urine Glucose (UA) Negative (Negative) 09/26/24 22: Urine Ketones Negative (Negative) 09/26/24 22: Urine Blood Negative (Negative) 09/26/24: Urine Nitrite Negative (Negative) 09/26/24: Urine Bilirubin Negative (Negative) 09/26/24: Urine Urobilinogen <2.0 mg/dL (<2.0) 09/26/24: Ur Leukocyte Esterase Negative (Negative) 09/26/24 Salicylates <1.0 mg/dL 09/26/24 17:28 Urine Opiates Screen Not Detected (NotDetected) 09/26/24 22:30 Ur Oxycodone Screen Not Detected (NotDetected) 09/26/24 22: Urine Methadone Screen Not Detected (NotDetected) 09/26/24 22:30 Acetaminophen <10.0 ug/mL 09/26/24: Ur Barbiturates Screen Not Detected (NotDetected) 09/26/24 22:30 U Tricyclic Antidepress Not Detected (NotDetected) 09/26/24 22:30 Ur Phencyclidine Scrn Not Detected (NotDetected) 09/26/24 22:30 Ur Amphetamines Screen Not Detected (NotDetected) 09/26/24 22:30 U Methamphetamines Scrn Not Detected (NotDetected) 09/26/24 22:30 U Benzodiazepines Scrn Not Detected (NotDetected) 09/26/24 22:30 Urine Cocaine Screen Not Detected (NotDetected) 09/26/24 22:30 U Marijuana (THC) Screen Detected (NotDetected) H 09/26/24 22: Serum Alcohol <10 mg/dL 09/26/24 17:28 SARS-CoV-2 (PCR) Not Detected (Not Detectd) 09/26/24 23:21 09/27/24 09:00 IDENTIFYING DATA: Patient is a , employed, 39-year-old male who is presenting with paranoia and substance use HPI: Patient was brought in to the emergency department by police due to paranoia. Patient was petition by [id number] due to paranoia. Per petition, [id number] Fuentes states that the patient has been "saying things like people are controlling him and people are watching him and wiring him to do things ". He further states that patient "told sister to get his son out of his house because someone was just killed in there ". While in the ED, patient endorsed auditory hallucinations stating "they just kept messaging me ". Patient was A&Ox3 to self, situation, and location. He was grossly oriented to the date. Patient was calm and cooperative with assessment. He reported improvement in paranoia since admission. He endorsed using kratom and cannabis prior to admission resulting in thought disorganization. Currently, he states that his main concerns include poor motivation, poor concentration, low mood, anhedonia, and fluctuating sleep. He states he has racing thoughts and inability to concentrate with daily chores and work. He states that he self medicates with kratom 6 mg daily and cannabis daily to help him function in his daily life. Patient states that he was believing that his family was in danger and was feeling paranoid prior to admission. He says thought that judgment day was approaching and that his children would be harmed for his flaws. Patient is able to reality test currently. He denies a history of psychotic symptoms including thought insertion, thought broadcasting, auditory and visual hallucinations, and paranoia. He further denies auditory and visual hallucinations and paranoia currently. He denies symptoms consistent with yohannes. He denies flight of ideas and risk-taking impulsive behaviors recently. He denies suicidal ideation and homicidal ideation, intent, and plan, as asked and assessed. PSYCH HX: Previous psychiatrist: Denies Therapist: Denies Past tx: Adderall but patient stopped it to use cannabis instead Hospitalizations: Denies prior hospitalizations NSSI: Denies SA: Denies PMH: Denies chronic medical conditions ALLERGIES: Denies PCP: Dr. Kim Head injuries: Concussions from sports Seizures: Denies SUBSTANCE HX: Alcohol: Rare, occasional drinking Cocaine: Denies Kratom: Started using in Jun 2024. 6 g daily Tobacco: Chew Cannabis: Since childhood, patient has been using cannabis for "ADHD" and has been using it daily currently. Denies using other substances SOCIAL/LEGAL HX: He is and has 3 children residing with him. He endorses social support from his sister and [id number]. 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 Patient appears to have fair hygiene and grooming. Behavior: Patient is seated without any agitated behavior. Speech: Patient's speech is fluent and nonpressured. Mood/Affect: Patient reports their mood is "tired", affect is congruent and constricted. Suicidality/Homicidality: Patient denies having any homicidal ideation intent or plan. Denies any suicidal ideations intent or plan Perceptions: Patient denies any visual hallucinations and denies any auditory hallucinations Though content/process: There is no evidence of any delusional thought content and thought process is linear and goal-directed. Memory and concentration: AOX3, grossly intact for the purposes of this session. Can spell "WORLD" backwards Judgment and insight: fair insight but poor judgment STRENGTHS/WEAKNESSES: Strength is fair insight and good social support. Weakness is comorbid substance use. 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 Patient signed adult voluntary form and medication consent and is placed in patient's chart. -Medications : Continue Lexapro 10 mg daily. Start Wellbutrin XL 150 mg daily. trazodone 50 mg qHS PRN for sleep -Patient was counselled on substance abuse and desired to cut back on use. Motivational interviewing. -Patient was informed of the risks, benefits and side effects of the medication and patient verbally consented to taking the medications. Patient signed med consent form and was placed in chart. -Internal Medicine consult to perform medical evaluation and physical. -SW on board for discharge planning. Encourage patient to participate in groups to work on coping skills. 09/27/24 09:35
[2024-09-27] MEDS: buPROPion XL 150 MG TAB.ER.24H PO SCH (11:24)
--- NOTE | 2024-09-27 15:50 | P.CONS ---
History of Present Illness - History of Present Illness This is a pleasant 39 years old male who presents initially because of halluc ination feeling anxious and depressed, not eating well. Patient states that he is under a lot of stress because he is undergoing a divorce process although he has full custody of his child is still struggling through this time and he was trying to solve it by using marijuana, he states that the cannabis helped him in the beginning but then he got worse so he decided to come to emergency room. Patient reports poor appetite, he was counseled and agrees to use Ensure. He denies any specific symptoms like no chest pain or dyspnea. No specific GI/ symptom, no headache dizziness weakness numbness. Gait is normal. He denies cigarette smoking or drinking alcohol. He is hemodynamically stable and afebrile. He is mildly tachycardic with heart rate 109, temperature 97.5. CBC showing hemoglobin of 12.9 rest of CBC, BMP, LFT INR are unremarkable. Urine analysis is not suspicious of infection. EKG showing sinus rhythm with sinus arrhythmia at [address]-T changes Salicylate is less than 1, e acetaminophen is less than 10, serum alcohol less than 10 and urine drug screen is positive for marijuana Review of Systems Review of systems CONSTITUTIONAL: No fever, no malaise, no fatigue. HEENT: No recent visual problems or hearing problems. Denied any sore throat. CARDIOVASCULAR: No orthopnea, PND, no palpitations, no syncope. PULMONARY: No shortness of breath, no cough, no hemoptysis. GASTROINTESTINAL: No diarrhea, no nausea, no vomiting, no abdominal pain. Normoactive bowel sounds. NEUROLOGICAL: No headaches, no weakness, no numbness. HEMATOLOGICAL: Denies any bleeding or petechiae. GENITOURINARY: Denies any burning micturition, frequency, or urgency. MUSCULOSKELETAL/RHEUMATOLOGICAL: Denies any joint pain, swelling, or any muscle pain. ENDOCRINE: Denies any polyuria or polydipsia. Past Medical History Past Medical History: No Reported History Past Surgical History: No Surgical Hx Reported Smoking Status: Former smoker Past Alcohol Use History: None Reported Past Drug Use History: Marijuana Medications and Allergies Home Medications Medication Instructions Recorded Confirmed Type Escitalopram [Lexapro] 10 mg PO DAILY 09/26/24 09/26/24 History Allergies Allergy/AdvReac Type Severity Reaction Status Date / Time No Known Allergies Allergy Verified 09/26/24 18:10 Physical Exam Vitals: Vital Signs Temp Pulse Pulse Resp BP BP Pulse Ox 09/27/24 08:21 97.5 F L 109 H 127/70 09/26/24 16:53 97.9 F 91 18 121/89 98 GENERAL: The patient is alert and oriented x3, not in any acute distress. Well developed, well nourished. HEENT: Pupils are round and equally reacting to light. EOMI. No scleral icterus. No conjunctival pallor. Normocephalic, atraumatic. No pharyngeal erythema. No thyromegaly. CARDIOVASCULAR: S1 and S2 present. No murmurs, rubs, or gallops. PULMONARY: Chest is clear to auscultation, no wheezing , no crackles. ABDOMEN: Soft, nontender, nondistended, normoactive bowel sounds. No palpable organomegaly. MUSCULOSKELETAL: No joint swelling or deformity. EXTREMITIES: No cyanosis, clubbing, or pedal edema. NEUROLOGICAL: Gross neurological examination did not reveal any focal deficits. SKIN: No rashes. no petechiae. Results CBC & Chem 7: 09/26/24 17:28 09/26/24 17:28 Labs: Abnormal Lab Results - Last 24 Hours (Table) 09/26/24 09/26/24 09/26/24 Range/Units 17:28 17:28 22:30 RBC 4.26 L (4.30-5.90) m/uL Hgb 12.9 L (13.0-17.5) gm/dL MCHC 30.9 L (31.0-37.0) g/dL Lymphocytes # 0.8 L (1.0-4.8) k/uL Sodium 135 L (137-145) mmol/L Creatinine 0.61 L (0.66-1.25) mg/dL Glucose 106 H (74-99) mg/dL U Marijuana (THC) Screen Detected H (NotDetected) Assessment and Plan Assessment: Assessment and plan: -Anxiety and depression associated with hallucination related to schizoaffective disorder: Management of mental health disorders per psychiatry primary team -Substance abuse with marijuana, patient was counseled and he agrees -Patient admits of chewing nicotine he was counseled against this habit and nicotine patches provided -Low appetite related to his depressive symptoms, start Ensure and counseling GI prophylaxis: No need DVT prophylaxis patient is mobile and low risk We recommend patient follow-up with his PCP in 1 week after discharge and he agrees
[2024-09-27] MEDS: traZODone HCL 50 MG TAB PO PRN (22:02)
[2024-09-27] MEDS: haloperidoL 5 MG TAB PO PRN (23:57)
[2024-09-28] MEDS: NICOTINE 21MG/24HR PATCH TRANSDERM SCH (07:45)
--- NOTE | 2024-09-28 15:10 | P.PN ---
Progress Note - Text Progress Note Date: 09/28/24 Interval history: Patient was seen [wandering the hallways] and was directable and agreeable to speak with content writer. He states that he feels well-balanced with current medication. He says his mood is "really good ". He reports feeling guilty about having tried "natural "substances rather than seeing a doctor. Discussed the potency and provided psychoeducation regarding cannabis and kratom. Patient says he does not want to use either any longer. He says that he is afraid of what happened to him and would never want to go through anything like this again. He also says that he cares too much for his children to be using substances. At this time patient denies any suicidal or homicidal ideations intent or plan. Denies any Auditory or visual hallucinations. Patient denies any side effects from the medications and has been compliant with meds. Mental status exam: General Appearance: [Patient appears to be stated age is alert, directable, and cooperative.] Behavior: [No agitated behavior. Patient is calm and directable] Speech: Patient's speech is fluent and nonpressured. Mood/Affect: Mood is improving mildly, affect is congruent and constricted. Suicidality/Homicidality: Patient denies having any suicidal or homicidal ideation intent or plan. Perceptions: Patient denies any auditory or visual hallucinations. Though content/process: [There is no evidence of any delusional thought content and thought process is linear and goal-directed.] Memory and concentration: AOX3, grossly intact for the purposes of this session Judgment and insight: improving mildly Assessment/Plan: Continue with current diagnosis. Patient continues to meet criteria for inpatient psychiatric admission for symptom stabilization and safety.[Patient will be maintained on current psychotropic medication regimen.] Monitor for medication compliance and for any psychotropic medication side effects. Will continue to monitor ongoing response to treatment. Encouraged participation in milieu.
[2024-09-29] MEDS: traZODone HCL 50 MG TAB PO ONE (01:57)
--- NOTE | 2024-09-29 12:08 | P.PN ---
Progress Note - Text Progress Note Date: 09/29/24 Interval History: Patient was seen today for psychiatric follow up. claims that his mood is impr oving at this time, states that the Wellbutrin is helping his energy and also his anxiety is improving. Claims that he came to the hospital because he felt that he was smoking more marijuana, making him feel more depressed and also was having some hallucinations. States that since being in the hospital he has been feeling better. Claims that he does have a history of ADHD. He was claiming that he is finding it difficult to sleep, was agreeable to have an increase in his trazodone for tonight. Claims that he has been going to groups participating with others. Has been eating well on the unit. Has been going to groups. Denying any suicidal homicidal ideations intent or plan denying any auditory or visual hallucinations. MENTAL STATUS EXAM: General Appearance: Patient appears to be stated age is alert, directable, and attempts to cooperate. Patient appears to have fair hygiene and grooming. Behavior: Patient is seated without any agitated behavior. More cooperative Speech: Patient's speech is fluent and nonpressured. Rambling at times Mood/Affect: Patient reports their mood is "good", affect is congruent and constricted. Improving mildly Suicidality/Homicidality: Patient denies having any homicidal ideation intent or plan. Denies any suicidal ideations intent or plan Perceptions: Patient denies any visual hallucinations and denies any auditory hallucinations Though content/process: There is no evidence of any delusional thought content and thought process is linear and goal-directed. Memory and concentration: AOX3, grossly intact for the purposes of this session Judgment and insight: Improving mildly IMPRESSIONS: major depressive disorder, severe cannabis use disorder, severe history of ADHD PLAN: -Patient is admitted under voluntary status to [facility] for stabilization of psychiatric symptoms and safety. Patient signed adult voluntary form and medication consent and is placed in patient's chart. -Medications : Continue Lexapro 10 mg daily. Wellbutrin XL 150 mg daily. increase trazodone 150 mg qHS for sleep/mood, added Benadryl 50 mg nightly as needed for insomnia -SW on board for discharge planning. Encourage patient to participate in groups to work on coping skills. Hopeful for discharge Sunday versus if patient is improving.
[2024-09-29] MEDS: traZODone HCL 50 MG TAB PO SCH (20:35)
[2024-09-29] MEDS: diphenhydrAMINE 50 MG CAP PO PRN (22:39)
--- NOTE | 2024-09-30 11:24 | P.PN ---
Progress Note - Text Progress Note Date: 09/30/24 Interval History: Patient was seen today for psychiatric follow up. claims that his mood is impr oving at this time. Claims that he is trying to stay positive on the unit, participating in the milieu going to groups. He continues to ramble at times, however was fairly polite and pleasant. He claims that he was able to sleep a bit better last night with the higher dose of trazodone. Claims that he would like to potentially go back home tomorrow if he could. States that is energy level is improving and also feels that his ADHD is improving. Claims that his appetite is improving. Denying any suicidal homicidal ideations intent or plan denying any auditory or visual hallucinations. MENTAL STATUS EXAM: General Appearance: Patient appears to be stated age is alert, directable, and attempts to cooperate. Patient appears to have fair hygiene and grooming. Behavior: Patient is seated without any agitated behavior. More cooperative Speech: Patient's speech is fluent and nonpressured. Rambling at times, improving mildly Mood/Affect: Patient reports their mood is "ok", affect is congruent and constricted. Improving mildly Suicidality/Homicidality: Patient denies having any homicidal ideation intent or plan. Denies any suicidal ideations intent or plan Perceptions: Patient denies any visual hallucinations and denies any auditory hallucinations Though content/process: There is no evidence of any delusional thought content and thought process is linear and goal-directed. more future oriented Memory and concentration: AOX3, grossly intact for the purposes of this session Judgment and insight: Improving mildly IMPRESSIONS: major depressive disorder, severe cannabis use disorder, severe history of ADHD PLAN: -Patient is admitted under voluntary status to [facility] for stabilization of psychiatric symptoms and safety. Patient signed adult voluntary form and medication consent and is placed in patient's chart. -Medications : Lexapro 10 mg daily. Wellbutrin XL 150 mg daily. trazodone 150 mg qHS for sleep/mood, Benadryl 50 mg nightly as needed for insomnia -SW on board for discharge planning. Encourage patient to participate in groups to work on coping skills. Hopeful for discharge tomorrow if patient is improving.
[2024-09-30 14:47] VITALS: BMI 17.6
[2024-09-30] MEDS: MELATONIN 5 MG TABLET PO PRN (20:32)
[2024-10-01] MEDS: IBUPROFEN 600 MG TAB PO PRN (06:23)
[2024-10-01 09:53] VITALS: BP 126/69; PULSE 75; RESP 18; TEMP 97.7
--- NOTE | 2024-10-01 10:43 | P.DS ---
Providers Date of admission: 09/27/24 00:26 Expected date of discharge: 10/01/24 Attending physician: Timbo Prabhakar MD Consults: 09/27/24 00:34 Consult Physician Routine Consulting Provider: Celeste Joaquin Consult Reason/Comments: Medical managment Do you want consulting provider notified?: Yes, Notify in am Primary care physician: Gelacio Goldberg - Discharge Diagnosis(es) (1) Major depressive disorder, severe Current Visit: Yes Status: Acute Priority: High (2) Cannabis use disorder, severe, dependence Current Visit: Yes Status: Acute Priority: High (3) History of ADHD Current Visit: Yes Status: Acute Priority: Medium Hospital Course: Admission HPI: Admission note was completed by Dr Lei "patient is a , employed, 39-year-old male who is presenting with paranoia and substance use. Patient was brought in to the emergency department by police due to paranoia. Patient was petition by [id number] due to paranoia. Per petition, [id number] Fuentes states that the patient has been "saying things like people are controlling him and people are watching him and wiring him to do things ". He further states that patient "told sister to get his son out of his house because someone was just killed in there ". While in the ED, patient endorsed auditory hallucinations stating "they just kept messaging me ". Patient was A&Ox3 to self, situation, and location. He was grossly oriented to the date. Patient was calm and cooperative with assessment. He reported improvement in paranoia since admission. He endorsed using kratom and cannabis prior to admission resulting in thought disorganization. Currently, he states that his main concerns include poor motivation, poor concentration, low mood, anhedonia, and fluctuating sleep. He states he has racing thoughts and inability to concentrate with daily chores and work. He states that he self medicates with kratom 6 mg daily and cannabis daily to help him function in his daily life. Patient states that he was believing that his family was in danger and was feeling paranoid prior to admission. He says thought that judgment day was approaching and that his children would be harmed for his flaws. Patient is able to reality test currently. He denies a history of psychotic symptoms including thought insertion, thought broadcasting, auditory and visual hallucinations, and paranoia. He further denies auditory and visual hallucinations and paranoia currently. He denies symptoms consistent with yohannes. He denies flight of ideas and risk-taking impulsive behaviors recently. He denies suicidal ideation and homicidal ideation, intent, and plan, as asked and assessed." Hospital course: Upon admission to the unit patient was directable and agreeable to commence treatment and signed adult voluntary form. Patient was initially depressed however cooperative however with time and treatment patient got along well with other patients on the unit and followed unit protocol. Patient was compliant with the medications and denied any side effects throughout hospital course, with the exception of trazodone causing a headache and was then discontinued. Patient was started on Lexapro 10 mg daily for mood/anxiety, Wellbutrin XL 150 mg daily for mood, trazodone nightly for sleep/insomnia and melatonin nightly for sleep. Patient spoke of his stressors and engaged in therapy both group/activity therapy. Patient was also seen by medical team for history and physical exam. Throughout the course of the hospitalization patient gradually improved with regards to mood, anxiety, sleep and returned back to their baseline level of functioning. On the day of discharge patient denied any s uicidal or homicidal ideations intent or plan denied any auditory or visual hallucinations. Patient endorsed wanting to live for their health and family. The patient denied any access to guns or weapons. Patient denied any paranoia and did not endorse any delusions. Patient does have a significant history of substance abuse and was counseled on abstaining from all substances including alcohol and marijuana. Patient elected to do outpatient substance use treatment program through their outpatient provider. Patient was also counseled on the medications and need for regular compliance and was encouraged to follow-up with their outpatient appointment for mental health and also for primary care. Prior to discharge a family meeting will be arranged by manager social media to answer any questions and ensure safety upon discharge incuding making sure that guns/weapons are either removed from the home or locked away. Mental status exam: General Appearance: Patient appears to be tall, thin, stated age is alert, pleasant, and cooperative. Patient is in no acute distress and has improved hygiene and grooming Behavior: Patient is calmly seated without any agitated behavior. Speech: Patient's speech is fluent and nonpressured. Mood/Affect: Patient reports their mood is "good", affect is congruent and euthymic. Suicidality/Homicidality: Patient denies having any suicidal or homicidal idea tion intent or plan. Perceptions: Patient denies any auditory or visual hallucinations. Though content/process: There is no evidence of any delusional thought content and thought process is linear and goal-directed. More future oriented Memory and concentration: AOX3, grossly intact for the purposes of this session. Can spell "WORLD" backwards correctly. Judgment and insight: improved with guarded prognosis Impression: Major depressive disorder severe without psychotic features cannabis use disorder severe history adhd Plan: -Continue with discharge today as patient has improved and stabilized psychiatrically and is not currently an imminent threat to themself and/or others. -Continue medications: wellbutrin xl 150 mg daily for mood, lexapro 10 mg daily for mood/anxiety, melatonin 10 mg qhs for sleep, benadryl 50 mg qhs prn for insomnia. -Patient was counseled on the need for medication compliance and appropriate follow-up at mental health and also primary care for medical issues. Patient verbalized understanding and agreed. -Social work to help coordinate patients discharge today. also to ensure safe home environment that guns/weapons are either removed from the home or locked away. Social work also to arrange for patients follow up appointments with [facility] for psychiatric care along with follow up with primary care provider. -Patient counseled on abstaining from recreational drugs and marijuana and alcohol. Was informed/educated on the adverse effects on their physical and mental health. Patient verbally agreed and understood. Patient was offered substance abuse treatment however declined at this time. -Patient was instructed to return to the hospital or seek immediate medical care if their psychiatric or medical symptoms do worsen or reoccur. Allergies Allergy/AdvReac Type Severity Reaction Status Date / Time No Known Allergies Allergy Verified 09/26/24 18:10 Laboratory Results WBC 5.9 k/uL (3.8-10.6) 09/26/24 17:28 RBC 4.26 m/uL (4.30-5.90) L 09/26/24 17:28 Hgb 12.9 gm/dL (13.0-17.5) L 09/26/24 17:28 Hct 41.6 % (39.0-53.0) 09/26/24 17:28 MCV 97.6 fL (80.0-100.0) 09/26/24 17: MCH 30.2 pg (25.0-35.0) 09/26/24: MCHC 30.9 g/dL (31.0-37.0) L 09/26/24 17: RDW 12.9 % (11.5-15.5) 09/26/24: Plt Count 245 k/uL (150-450) 09/26/24: MPV 7.3 09/26/24 17: Neutrophils % 78 % 09/26/24 17: Lymphocytes % 13 % 09/26/24: Monocytes % 7 % 09/26/24: Eosinophils % 1 % 09/26/24 Basophils % 0 % 09/26/24: Neutrophils # 4.6 k/uL (1.3-7.7) 09/26/24: Lymphocytes # 0.8 k/uL (1.0-4.8) L 09/26/24: Monocytes # 0.4 k/uL (0-1.0) 09/26/24: Eosinophils # 0.1 k/uL (0-0.7) 09/26/24: Basophils # 0.0 k/uL (0-0.2) 09/26/24: PT 10.7 sec (10.0-12.5) 09/26/24: INR 1.0 (<1.2) 09/26/24: APTT 22.8 sec (22.0-30.0) 09/26/24: Sodium 135 mmol/L (137-145) L 09/26/24: Potassium 4.1 mmol/L (3.5-5.1) 09/26/24: Chloride 101 mmol/L (98-107) 09/26/24: Carbon Dioxide 27 mmol/L (22-30) 09/26/24: Anion Gap 7 mmol/L 09/26/24: BUN 13 mg/dL (9-20) 09/26/24: Creatinine 0.61 mg/dL (0.66-1.25) L 09/26/24:28 Est GFR (CKD-EPI)AfAm >90 (>60 ml/min/1.73 sqM) 09/26/24 17:28 Est GFR (CKD-EPI)NonAf >90 (>60 ml/min/1.73 sqM) 09/26/24 17:28 Glucose 106 mg/dL (74-99) H 09/26/24 17:28 Plasma Lactic Acid Zeke 1.2 mmol/L (0.7-2.0) 09/26/24 17:28 Calcium 9.3 mg/dL (8.4-10.2) 09/26/24 17: Magnesium 2.1 mg/dL (1.6-2.3) 09/26/24 17: Total Bilirubin 1.0 mg/dL (0.2-1.3) 09/26/24 17: AST 23 U/L (17-59) 09/26/24 17: ALT 17 U/L (4-49) 09/26/24 17:28 Alkaline Phosphatase 50 U/L (38-126) 09/26/24 17:28 Total Protein 7.0 g/dL (6.3-8.2) 09/26/24 17:28 Albumin 4.7 g/dL (3.5-5.0) 09/26/24 17:28 TSH 1.100 mIU/L (0.465-4.680) 09/26/24 17:48 Urine Color Light Yellow 09/26/24 22:30 Urine Appearance Clear (Clear) 09/26/24 22: Urine pH 7.0 (5.0-8.0) 09/26/24 22:30 Ur Specific [place] 1.015 (1.001-1.035) 09/26/24 22:30 Urine Protein Negative (Negative) 09/26/24 22:30 Urine Glucose (UA) Negative (Negative) 09/26/24 22: Urine Ketones Negative (Negative) 09/26/24 22: Urine Blood Negative (Negative) 09/26/24 22: Urine Nitrite Negative (Negative) 09/26/24 22: Urine Bilirubin Negative (Negative) 09/26/24 22: Urine Urobilinogen <2.0 mg/dL (<2.0) 09/26/24 22: Ur Leukocyte Esterase Negative (Negative) 09/26/24 22:30 Salicylates <1.0 mg/dL 09/26/24 17:28 Urine Opiates Screen Not Detected (NotDetected) 09/26/24 22:30 Ur Oxycodone Screen Not Detected (NotDetected) 09/26/24 22:30 Urine Methadone Screen Not Detected (NotDetected) 09/26/24 22:30 Acetaminophen <10.0 ug/mL 09/26/24 17:28 Ur Barbiturates Screen Not Detected (NotDetected) 09/26/24 22:30 U Tricyclic Antidepress Not Detected (NotDetected) 09/26/24 22:30 Ur Phencyclidine Scrn Not Detected (NotDetected) 09/26/24 22:30 Ur Amphetamines Screen Not Detected (NotDetected) 09/26/24 22:30 U Methamphetamines Scrn Not Detected (NotDetected) 09/26/24 22:30 U Benzodiazepines Scrn Not Detected (NotDetected) 09/26/24 22:30 Urine Cocaine Screen Not Detected (NotDetected) 09/26/24 22:30 U Marijuana (THC) Screen Detected (NotDetected) H 09/26/24 22:30 Serum Alcohol <10 mg/dL 09/26/24 17:28 SARS-CoV-2 (PCR) Not Detected (Not Detectd) 09/26/24 23:21 Vital Signs Temp 97.7 F 10/01/24 09:00 Pulse 75 10/01/24 09:00 Resp 18 10/01/24 09:00 BP 126/69 10/01/24 09:00 Pulse Ox 98 09/30/24 21:00 FiO2 Intake & Output 09/30/24 10/01/24 10/01/24 18:59 06:59 18:59 Weight 60.6 kg Patient Condition at Discharge: Stable Plan - Discharge Summary Discharge Rx Participant: No New Discharge Prescriptions: New Escitalopram [Lexapro] 10 mg PO DAILY 30 Days #30 tab Melatonin 10 mg PO HS 30 Days #60 tab Ibuprofen [Motrin] 600 mg PO Q6HR PRN tab PRN Reason: Moderate Pain (Scale 4 To 6) Nicotine Gum (Polacrilex) [Nicorette] 2 mg BUCCAL Q4HR PRN 30 Days #180 pieceofgum PRN Reason: Nicotine Cravings diphenhydrAMINE [Benadryl] 50 mg PO HS PRN 30 Days #30 cap PRN Reason: Insomnia Nicotine 21Mg/24Hr Patch [Habitrol] 1 patch TRANSDERM DAILY 14 Days #14 patch buPROPion XL [Wellbutrin XL] 150 mg PO DAILY 30 Days #30 tab Discontinued Escitalopram [Lexapro] 10 mg PO DAILY Discharge Medication List Escitalopram [Lexapro] 10 mg PO DAILY 30 Days #30 tab 10/01/24 [Rx] Ibuprofen [Motrin] 600 mg PO Q6HR PRN tab 10/01/24 [Rx] Melatonin 10 mg PO HS 30 Days #60 tab 10/01/24 [Rx] Nicotine 21Mg/24Hr Patch [Habitrol] 1 patch TRANSDERM DAILY 14 Days #14 patch 10/01/24 [Rx] Nicotine Gum (Polacrilex) [Nicorette] 2 mg BUCCAL Q4HR PRN 30 Days #180 pieceofgum 10/01/24 [Rx] buPROPion XL [Wellbutrin XL] 150 mg PO DAILY 30 Days #30 tab 10/01/24 [Rx] diphenhydrAMINE [Benadryl] 50 mg PO HS PRN 30 Days #30 cap 10/01/24 [Rx] Follow up Appointment(s)/Referral(s): [facility] [Outside] - 10/02/24 12:00 pm (Intake at [facility] on 10/02/24 @ 12:00 pm with Luz) Gelacio Goldberg MD [Primary Care Provider] - 1-2 days Activity/Diet/Wound Care/Special Instructions: [facility] Discharge Info Avoid the use of street drugs and alcohol. Take all medications as prescribed. When you are in need of refills on your medications, please contact your outpatient medical provider and/or outpatient psychiatrist. Please go to your scheduled outpatient appointments for aftercare treatment. If symptoms return or become worse, call the crisis line at or and/or visit the nearest emergency room for assistance. National Suicide and Crisis Lifeline - call or text 988 Discharge Disposition: HOME SELF-CARE
== END 2024-10-01 14:37 | disposition home or self-care (01) | DRG 885 ==
LOC: EC 16:50 → 3MHU 09-27 00:26
PROVIDERS: ADMIT Psychiatry & Neurology Psychiatry; ATTEND Psychiatry & Neurology Psychiatry
DX: F32.2 Major depressive disorder, single episode, severe without psychotic features (principal); F12.259 Cannabis dependence with psychotic disorder, unspecified; F19.10 Other psychoactive substance abuse, uncomplicated; F90.9 Attention-deficit hyperactivity disorder, unspecified type; F17.290 Nicotine dependence, other tobacco product, uncomplicated; F41.9 Anxiety disorder, unspecified; G47.00 Insomnia, unspecified; Z63.5 Disruption of family by separation and divorce; Z79.899 Other long term (current) drug therapy
CPT/HCPCS: 36415; 80053; 80143; 80179; 80306; 80320; 81003; 82075; 83605; 83735; 84443; 85025; 85610; 85730; 87635; 93005; 99285